=== PATIENT | male | born 1950 | race Caucasian/White ===

== ENCOUNTER 2017-10-12 11:39 | Day surgery (SDC) | payer MEDICARE, OTHER ==
[2017-10-12 13:30] LABS: ADD MAN DIFF? NO
[2017-10-12 13:31] LABS: BASOPHILS % 0.2 % (0.0-2.0); EOSINOPHILS # 0.1 10^3/ul (0.0-0.5); EOSINOPHILS % 2.3 % (0.0-7.0); HEMATOCRIT 30.2 % (42.0-52.0); HEMOGLOBIN 9.5 g/dl (14.0-18.0); LYMPHOCYTES # 1.2 10^3/ul (0.8-2.9); LYMPHOCYTES % 24.9 % (15.0-51.0); MEAN CORPUSCULAR HEMOGLOBIN 27.5 pg (29.0-33.0); MEAN CORPUSCULAR HGB CONC 31.5 g/dl (32.0-37.0); MEAN CORPUSCULAR VOLUME 87.3 fl (82.0-101.0); MEAN PLATELET VOLUME 9.5 fl (7.4-10.4); MONOCYTE # 0.3 10^3/ul (0.3-0.9); MONOCYTES % 6.3 % (0.0-11.0); NEUTROPHIL # 3.2 10^3/ul (1.6-7.5); NEUTROPHILS % 66.1 % (39.0-77.0); PLATELET COUNT 168 10^3/UL (140-415); RED BLOOD COUNT 3.46 10^6/ul (4.70-6.10); RED CELL DISTRIBUTION WIDTH 13.3 % (11.5-14.5)
[2017-10-12 13:31] LABS: WHITE BLOOD COUNT 4.8 10^3/ul (4.8-10.8)
[2017-10-12 13:59] LABS: ADD UMIC YES; UR ASCORBIC ACID NEGATIVE (NEGATIVE); UR BILIRUBIN (Dip) NEGATIVE (NEGATIVE); UR BLOOD (Dip) 1+ mg/dL (NEGATIVE); UR CLARITY CLEAR (CLEAR); UR COLOR YELLOW (YELLOW); UR GLUCOSE (Dip) NEGATIVE (NEGATIVE); UR KETONES (Dip) NEGATIVE (NEGATIVE); UR LEUKOCYTE ESTERASE (Dip) NEGATIVE Leu/ul (NEGATIVE); UR NITRITE (Dip) NEGATIVE (NEGATIVE); UR RBC 0 /HPF (0-5); UR SPECIFIC GRAVITY (Dip) 1.011 (1.003-1.030); UR TOTAL PROTEIN (Dip) 1+ mg/dl (NEGATIVE); UR UROBILINOGEN (Dip) NEGATIVE (NEGATIVE); UR WBC 0 /HPF (0-5)
[2017-10-12 14:00] LABS: HOLD TRANSMISSIONS 1
[2017-10-12] MEDS ORDERED: FENTAnyl 50 MCG/ML VIAL (15:02)
[2017-10-12] MEDS ORDERED: MIDAZOLAM 1 MG/ML 2 ML INJ (15:02)
[2017-10-12] MEDS: POLYMYXIN/BACITRACIN 1L IRRIG (15:28)
[2017-10-12] MEDS: LIDOCAINE 1%/EPI 30 ML INJ (15:40)
[2017-10-12] MEDS ORDERED: ETOMIDATE 20 MG INJ (15:48)
[2017-10-12] MEDS ORDERED: ONDANSETRON 4 MG INJ (15:48)
[2017-10-12] MEDS ORDERED: LIDOCAINE 100 MG SYRINGE (15:48)
[2017-10-12] MEDS ORDERED: CEFAZOLIN 1 GM INJ (15:48)
[2017-10-12] MEDS ORDERED: METOCLOPRAMIDE 10 MG INJ IV (16:00)
[2017-10-12] MEDS ORDERED: MEPERIDINE 25 MG INJ IV (16:00)
[2017-10-12] MEDS ORDERED: HYDROmorphONE (0.2 MG/ML) 10ML SYG IV ×2 (16:00)
[2017-10-12] MEDS ORDERED: ONDANSETRON 4 MG INJ IV (16:00)
[2017-10-12] MEDS ORDERED: DIPHENHYDRAMINE 50 MG INJ IV (16:00)
[2017-10-12] MEDS ORDERED: FENTAnyl 50 MCG/ML VIAL IV (16:00)
== END 2017-10-12 17:08 | disposition home or self-care (01) ==
LOC: SDS 11:39
DX: M65.842 Other synovitis and tenosynovitis, left hand (principal); I10 Essential (primary) hypertension; E11.9 Type 2 diabetes mellitus without complications; E78.5 Hyperlipidemia, unspecified; E66.9 Obesity, unspecified; Z68.32 Body mass index [BMI] 32.0-32.9, adult
CPT/HCPCS: 26160; 71045; 81001; 82962; 85025; 87070; 87075; 87102; 88305; 88311; 93005